=== PATIENT | male | born 1990 | race Asian ===

== ENCOUNTER 2020-10-10 21:50 | Emergency (ER) | payer OTHER ==
[~2020-10-10] VITALS: Ht 170.2 cm; Wt 79.4 kg
[2020-10-10 21:50] VITALS: BP 145/90
== END 2020-10-10 23:08 | disposition home or self-care (01) ==
LOC: ER 21:55
DX: S61.232A Puncture wound without foreign body of right middle finger without damage to nail, initial encounter (principal); W46.0XXA Contact with hypodermic needle, initial encounter; Y93.89 Activity, other specified; Y92.89 Other specified places as the place of occurrence of the external cause; Y99.8 Other external cause status
CPT/HCPCS: 36415; 86706; 86803; 87340; 87806

== ENCOUNTER → 2020-12-03 | Emergency (ER) | payer OTHER ==
[~2020-12-03] VITALS: Ht 170.2 cm; Wt 79.4 kg
[2020-12-03 02:47] VITALS: BP 116/61
== END | disposition home or self-care (01) ==
LOC: ER 04:46
DX: S69.90XA Unspecified injury of unspecified wrist, hand and finger(s), initial encounter (principal); W46.0XXA Contact with hypodermic needle, initial encounter; Y93.89 Activity, other specified; Y92.89 Other specified places as the place of occurrence of the external cause; Y99.0 Civilian activity done for income or pay
CPT/HCPCS: 36415; 86706; 86803